=== PATIENT | female | born 1955 | race Caucasian/White ===

== ENCOUNTER 2016-04-26 11:43 | Emergency (ER) | payer OTHER ==
[~2016-04-26 11:43] MED LIST: ASPI325T4 PO; FLUO20CA8 PO; FLUT16SP2 NS; KRIL1CAP10 PO; LISI1TAB3 PO; PROVENTIL HFA6.7 GM IH; SAXA1TBM3 PO
--- NOTE | 2016-04-26 12:04 | RAD ---
CT of the head without contrast, 04/26/2016: History: Slurred speech, decreased level of consciousness Comparison is made to a study from 02/20/2014. The ventricles are within normal limits in size. There is no shift of the midline structures. There is no evidence of acute intracranial hemorrhage or mass effect. A couple of small periventricular lucencies on the left are compatible with chronic ischemic change. IMPRESSION: No acute intracranial abnormality is detected. PQRS Compliance Statement: One or more of the following individualized dose reduction techniques were utilized for this examination: 1. Automated exposure control 2. Adjustment of the mA and/or kV according to patient size 3. Use of iterative reconstruction technique
[2016-04-26] MEDS ORDERED: IV NORMAL SALINE 1000ML BAG 1,000 ML IV SCH (12:24)
--- NOTE | 2016-04-26 12:45 | PHYS DOC ---
Past Medical History Past Medical History: Asthma, Diabetes-Type II, Hypertension Past Surgical History: , Other Additional Past Surgical Histo: ankle surgery Alcohol Use: Rarely Drug Use: None Adult General Chief Complaint Chief Complaint: PRESYNCOPE HPI HPI Patient is a 60 year old female who presents by EMS with for episode of confusion, slurred speech, lightheadedness and generalized weakness. She states she felt as though she was going to pass out. This was a 15-30 minute episode and she is currently feeling at her mental baseline, but still has generalized weakness. She has recently been ill with dry cough, chills, sweats, decreased appetite, and myalgia. Her was recently sick with similar illness. also states she is at her mental baseline. She denies nausea or vomiting, diarrhea, dysuria, chest pain, dyspnea, abdominal pain, headache, vision changes, dizziness. Review of Systems Review of Systems Constitutional: Denies measured fever [] Eyes: Denies change in visual acuity, redness, or eye pain [] HENT: Denies nasal congestion or sore throat [] Respiratory: Denies shortness of breath [] Cardiovascular: No additional information not addressed in HPI [] GI: Denies abdominal pain, nausea, vomiting, bloody stools or diarrhea [] : Denies dysuria or hematuria [] Musculoskeletal: Denies back pain or joint pain [] Integument: Denies rash or skin lesions [] Neurologic: Denies headache, focal weakness or sensory changes [] Endocrine: Denies polyuria or polydipsia [] Current Medications Current Medications Current Medications Medications (Trade) Dose Ordered Sig/[facility] Start Time Stop Time Status Last Admin Dose Admin Sodium Chloride (Iv Sodium Chloride 0.9% 1000ml Bag) 1,000 ml @ 1,000 mls/hr Q1H 04/26/16 12:24 04/26/16 13:23 DC 04/26/16 12:24 1,000 MLS/HR Allergies Allergies Allergies Coded Allergies Type Severity Reaction Last Updated Verified Sulfa (Sulfonamide Antibiotics) Allergy Intermediate 02/20/14 No erythromycin base Allergy Intermediate 02/20/14 No Physical Exam Physical Exam Constitutional: Well developed, well nourished, no acute distress, non-toxic appearance. [] HENT: Normocephalic, atraumatic, bilateral external ears normal, oropharynx moist, no oral exudates, nose normal. [] Eyes: PERRLA, EOMI, conjunctiva normal, no discharge. [] Neck: Normal range of motion, no tenderness, supple, no stridor. [] Cardiovascular:Heart rate regular rhythm [] Lungs & Thorax: Bilateral breath sounds clear to auscultation [] Abdomen: Bowel sounds normal, soft, no tenderness. [] Skin: Warm, dry, no erythema, no rash. [] Back: Normal range of motion. [] Extremities: No tenderness, ROM intact, no edema. [] Neurologic: Alert and oriented X 3, normal motor function, normal sensory function, no focal deficits noted, cranial nerves II through XII intact. [] Psychologic: Affect normal, judgement normal, mood normal. [] Current Patient Data Vital Signs Vital Signs Date Time Temp Pulse Resp B/P Pulse Ox O2 Delivery O2 Flow Rate FiO2 04/26/16 11:43 98.1 68 20 184/91 99 Room Air 98.1 Lab Values Laboratory Tests Test 04/26/16 12:00 White Blood Count 4.2x10^3/uL (4.0-11.0) Red Blood Count 5.02x10^6/uL (3.50-5.40) Hemoglobin 14.0g/dL (12.0-15.5) Hematocrit 42.5% (36.0-47.0) Mean Corpuscular Volume 85fL (79-100) Mean Corpuscular Hemoglobin 28pg (25-35) Mean Corpuscular Hemoglobin Concent 33g/dL (31-37) Red Cell Distribution Width 13.9% (11.5-14.5) Platelet Count 175x10^3/uL (140-400) Neutrophils (%) (Auto) 58% (31-73) Lymphocytes (%) (Auto) 23% (24-48) L Monocytes (%) (Auto) 17% (0-9) H Eosinophils (%) (Auto) 2% (0-3) Basophils (%) (Auto) 1% (0-3) Neutrophils # (Auto) 2.4x10^3uL (1.8-7.7) Lymphocytes # (Auto) 1.0x10^3/uL (1.0-4.8) Monocytes # (Auto) 0.7x10^3/uL (0.0-1.1) Eosinophils # (Auto) 0.1x10^3/uL (0.0-0.7) Basophils # (Auto) 0.0x10^3/uL (0.0-0.2) Sodium Level 144mmol/L (136-145) Potassium Level 4.3mmol/L (3.5-5.1) Chloride Level 103mmol/L (98-107) Carbon Dioxide Level 31mmol/L (21-32) Anion Gap 10 (6-14) Blood Urea Nitrogen 19mg/dL (7-20) Creatinine 1.2mg/dL (0.6-1.0) H Estimated GFR (Cockcroft-Gault) 46.1 Glucose Level 144mg/dL (70-99) H Calcium Level 9.2mg/dL (8.5-10.1) Troponin I Quantitative < 0.017ng/mL (0.000-0.055) Influenza Type A Antigen Negative (NEGATIVE) Influenza Type B Antigen Negative (NEGATIVE) Laboratory Tests 04/26/16 12:00 Laboratory Tests 04/26/16 12:00 EKG EKG EKG as interpreted by me as normal sinus rhythm, rate 67, no ST-T changes, normal intervals, no ectopy Radiology/Procedures Radiology/Procedures Chest xray as interpreted by me with no acute cardiopulmonary disease process Head CT without contrast IMPRESSION: No acute intracranial abnormality is detected. DICTATED and SIGNED BY: ADRIEN CRAWFORD MD DATE: 04/26/16 7478 Course & Med Decision Making Course & Med Decision Making Pertinent Labs and Imaging studies reviewed. (See chart for details) Workup is unremarkable. She has remained in mental baseline. She feels well and would like to go home. She is interested in restarting lisinopril. Encouraged close follow-up with PCP. Return precautions given. She and understand and agree with plan. Dragon Disclaimer Dragon Disclaimer This electronic medical record was generated, in whole or in part, using a voice recognition dictation system. Departure Departure Impression: Primary Impression: Pre-syncope Additional Impression: Uncontrolled hypertension Disposition: HOME, SELF-CARE Condition: STABLE Referrals: DEDRA CHE (PCP) Patient Instructions: Syncope, [id number] Additional Instructions: Drink liquids to stay hydrated. Take lisinopril daily. Follow-up with your primary care doctor within one week. Return for any concerns. Scripts Lisinopril 10 Mg Tablet1 Tab PO DAILY #30 TAB Ref 0 Prov:Ford MALDONADO MD 04/26/16 Problem Qualifiers Ford MALDONADO MD Apr 26, 2016 12:45
[2016-04-26 12:47] LABS: BASO % 1 % (0-3); EOS % 2 % (0-3); HEMATOCRIT 42.5 % (36.0-47.0); LYMPH % 23 % (24-48); MEAN CORPUSCULAR HEMOGLOBIN 28 pg (25-35); MEAN CORPUSCULAR HGB CONC 33 g/dL (31-37); MEAN CORPUSCULAR VOLUME 85 fL (79-100); MONO % 17 % (0-9); NEUT % 58 % (31-73); PLATELET COUNT 175 x10^3/uL (140-400); RED BLOOD COUNT 5.02 x10^6/uL (3.50-5.40); RED CELL DISTRIBUTION WIDTH 13.9 % (11.5-14.5); WHITE BLOOD COUNT 4.2 x10^3/uL (4.0-11.0)
--- NOTE | 2016-04-26 13:02 | RAD ---
Portable chest, 04/26/2016: History: Cough Comparison is made to a study from 03/25/2008. The heart is mildly enlarged. The aorta is mildly tortuous. The pulmonary vascularity is normal. There is mild linear atelectasis in the left midlung. The lungs are otherwise clear. There is no evidence of pleural fluid. Mild spurring is present in the spine. IMPRESSION: 1. Mild cardiomegaly. 2. Mild linear atelectasis on the left.
[2016-04-26 13:04] LABS: CALCIUM 9.2 mg/dL (8.5-10.1); CREATININE 1.2 mg/dL (0.6-1.0); GFR 46.1; POTASSIUM 4.3 mmol/L (3.5-5.1)
[2016-04-26 13:06] LABS: OBC FLU VALID
[2016-04-26 14:07] VITALS: BP 214/93
[2016-04-26] MEDS ORDERED: LISI10TA2 PO (14:24)
--- NOTE | 2016-04-27 07:08 | EKG ---
[facility] [address] [place] [address] Test Date: 2016-04-26 Test Time: 10:44:13 Pat Name: MOJGAN KERN Department: Room: Gender: F Right Of Way Agent: : 1955 Requested By: Ford MALDONADO Order Number: [id number] Reading MD: Sully Nicole Measurements Intervals [place] Rate: 67 P: 34 SC: 176 QRS: -28 QRSD: 84 T: 59 QT: 422 QTc: 449 Interpretive Statements SINUS RHYTHM LEFTWARD AXIS NORMAL ECG Electronically Signed On 04-28-2016 20:00:33 CDT by Sully Nicole
== END 2016-04-26 14:42 | disposition home or self-care (01) ==
LOC: ER 11:43
DX: R55 Syncope and collapse (principal); I10 Essential (primary) hypertension; R47.81 Slurred speech; R41.0 Disorientation, unspecified; R53.1 Weakness; E11.9 Type 2 diabetes mellitus without complications; J45.909 Unspecified asthma, uncomplicated; Z88.2 Allergy status to sulfonamides; Z88.1 Allergy status to other antibiotic agents
CPT/HCPCS: 36415; 70450; 71010; 80048; 84484; 85027; 87804; 93005; 96360; 96361; 99285; J7030